=== PATIENT | female | born 1955 | race Caucasian/White ===

== ENCOUNTER → 2021-05-06 13:10 | Outpatient (CLI) | payer MEDICARE, OTHER, SELFPAY ==
--- NOTE | 2021-05-06 13:16 | DI.RAD.S_ITS ---
PROCEDURE: XR SHOULDER LT MIN 2V INDICATIONS: LEFT SHOULDER PAIN TECHNIQUE: 3 views of the shoulder were acquired. COMPARISON: None. FINDINGS: Bones: No fractures or dislocations. No suspicious bony lesions. Mild degenerative change at the glenohumeral and AC joints. Visualized ribs appear intact. Soft tissues: No suspicious soft tissue calcifications. IMPRESSION: No fracture or dislocation. Mild degenerative change. Dictated by: Lonnie Bridges M.D. on 05/06/2021 at 14:05 Approved by: Lonnie Bridges M.D. on 05/06/2021 at 14:06
== END ==
PROVIDERS: PCP Family Medicine; Referring Provider Physical Medicine & Rehabilitation; Visit Provider Physical Medicine & Rehabilitation
DX: M75.42 Impingement syndrome of left shoulder (principal); M19.019 Primary osteoarthritis, unspecified shoulder; M75.102 Unspecified rotator cuff tear or rupture of left shoulder, not specified as traumatic; M75.22 Bicipital tendinitis, left shoulder; M25.512 Pain in left shoulder
CPT/HCPCS: 73030; 99214